=== PATIENT | female | born 2005 | race Caucasian/White ===

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

== ENCOUNTER 2023-09-12 12:29 | Emergency (ER) | payer OTHER, SELFPAY ==
[2023-09-12 12:35] VITALS: BP 113/76; PULSE 81; RESP 17; TEMP 36.6; O2SAT 97; BMI 42.0
--- NOTE | 2023-09-12 12:40 | ED_ITS ---
HPI - General Adult General Chief complaint: Abdominal Pain Stated complaint: Stomach Pain Headache Time Seen by Provider: 09/12/23 13:56 Source: patient Mode of arrival: ambulatory Limitations: no limitations History of Present Illness HPI narrative: 18 year old female with no significant pmhx presents to the ED today with complaint of headache and abdominal discomfort x1 day. Reports epigastric discomfort that began gradually while at work yesterday. Later that night began to have a mild headache. Reports eating dinner and drinking water before going to bed and was able to sleep through the night. Endorses waking up this morning with continued epigastric discomfort, no pain. No radiation. States that everyone she lives with is sick with similar symptoms. Denies fever, chills, nasal congestion, sore throat, ear pain, vision changes, chest pain, SOB, wheezing, N/V, diarrhea, or constipation. Denies previous abdominal surgery. Related Data Allergies Allergy/AdvReac Type Severity Reaction Status Date / Time No Known Allergies Allergy Verified 09/12/23 12:34 Review of Systems 2 Review of Systems: Constitutional: No fever, chills, fatigue, night sweats, weight changes ENT/Mouth: No ear pain, hearing loss, nasal congestion, sinus pain, rhinorrhea, sore throat Eyes: No eye pain, swelling, redness, vision changes, discharge Cardio: No chest pain, palpitations, TALAVERA, orthopnea, peripheral edema Pulm: No SOB, cough, sputum, wheezing, dyspnea, hemoptysis GI: No nausea, vomiting, hematemesis, +abdominal discomfort, No diarrhea, constipation, hematochezia, melena : No irregular bleeding, dysuria, frequency, urgency, hesitancy, hematuria, flank pain, urinary flow changes, urinary incontinence or retention MSK: No back pain, neck pain, joint pain, myalgias Skin: No lesions, rashes Neuro: No weakness, numbness, paresthesias, LOC, dizziness, +headache All other systems reviewed and are negative. [facility] Past Medical History Attestation statement: The following information was validated with the patient. Source: old records reviewed and nursing notes reviewed Social History Social History Alcohol intake: never Smoked in Last 30 Days: No Use of substances other than those prescribed or required for medical reasons: No Advance Directives: No Advance Directives Information Provided: Yes Physical Exam ED Vital Signs: Vital Signs - 24 hr 09/12/23 12:35 09/12/23 13:55 Temperature 98 F 98.2 F Pulse Rate 81 Respiratory Rate 17 Blood Pressure 113/76 Pulse Oximetry 97 BMI result Body Mass Index 42.0 Vital signs are stable, afebrile. Const General: cooperative, comfortable, no acute distress, alert and awake Nutritional Appearance: overweight Orientation/consciousness: patient oriented x3 Limitations: no limitations HENNJ Head: Yes normal to inspection Ears: hearing grossly normal bilaterally General nose exam: Normal external nose present Face and sinus: Yes normal facial exam and Yes sinuses nontender Mouth: Normal oral and palatal mucosa present Throat: Yes posterior oropharynx normal, Yes tonsils normal and Yes uvula midline Eyes General: appearance normal, both eyes and all related structures Conjunctivae: conjunctivae normal Sclerae: sclerae normal Pupils: Equal, round and reactive pupils present EOM: EOMs intact bilaterally Neck Neck: Yes normal visual inspection, Yes no lymphadenopathy and Yes no meningeal signs Resp Effort & Inspection: normal respiratory effort Auscultation: clear to auscultation bilaterally Cardio Rate: regular rate Rhythm: regular rhythm Peripheral pulses: radial pulses present GI Other: Abdomen is soft, nontender, nondistended, normoactive bowel sounds x4, no rebound tenderness or guarding. Negative rovsings. No mcburney point tenderness. Inspection: Yes obesity and Yes striae General: Yes no CVA tenderness Back/Spine/Pelvis Back: no CVA tenderness Skin General skin exam: no rashes or lesions noted Neuro General: patient oriented x3, gait normal, moves all extremities and no meningeal signs Cranial nerves: Yes CN's II-XII intact bilaterally and Yes Equal, round and reactive pupils present Extrem General: Yes normal to inspection, Yes capillary refill normal and Yes no clubbing, cyanosis or edema Course Course Course Narrative: This is an RME: Additional HPI, ROS, PE not included below will be deferred to primary provider. This is a 18 yo female presenting with stomach pain, headache X 1 day. She has had contact with her sister who has similar symptoms. Endorses fever and chills subjectively yesterday at work Plan - viral testing Reevaluation(s) Reevaluation #1: 6215-- CBC without leukocytosis or anemia. Chemistry without acute electrolyte abnormality requiring intervention. Liver enzymes normal. Urine does not demonstrate urinary tract infection or . There is no blood in urine to indicate renal stone. Serology is negative for COVID and influenza. > Informed patient of unremarkable lab, urine and serology results. This is likely a viral infection. As patient's abdomen is soft, nondistended and nontender to palpation I do not feel as though imaging is necessary. I do not suspect an acute appendicitis, cholecystitis or acute abdomen at this time. Strict return precautions discussed. All questions answered at this time. Patient is agreeable with disposition and stable for discharge. Medical Decision Making Medical Decision Making [facility] Narrative: 18 year old female with no significant pmhx presents to the ED today with complaint of headache and abdominal discomfort x1 day. Vital signs stable, afebrile. Patient is nontoxic appearing and in no acute distress, watching videos on her phone. Exam nonfocal. PERRLA. Posterior oropharynx without erythema, edema. No tonsillar exudates. Uvula midline. RRR. Lungs CTA b/l. Abdomen is soft, ND/NT, no rebound tenderness or guarding. There are normoactive bowel sounds x4. Negative Rovsing sign. No McBurney point tenderness. NV intact distally. Clinical concern for viral syndrome, gastroenteritis, gastritis, headache, migraine. Low suspicion for urinary tract infection, renal colic, nephrolithiasis, pyelonephritis, . Low suspicion for acute appendicitis, cholecystitis, pancreatitis, SBO, or acute abdomen. Unlikely ectopic , ovarian cyst rupture, or ovarian torsion. Basic labs, serology, UA, urine obtained in triage. Plan to review results and re-evaluate patient. Differential Diagnosis Differential Diagnoses: The differential diagnosis associated with the presentation includes As above. Admission/Observation Not indicated. Lab Data MDM Lab Attestation statement: I reviewed the patient's lab results. As above. 09/12/23 12:51 09/12/23 12:51 Labs: Lab Results 09/12/23 Range/Units 12:51 WBC 8.5 (4.8-10.8) X10*3/uL RBC 4.77 (4.20-5.50) X10*6/uL Hgb 13.7 (12.0-16.0) g/dl Hct 39.9 (37.0-47.0) % MCV 83.6 (80.0-98.0) fL MCH 28.7 (27.0-33.0) pg MCHC 34.3 (31.0-35.0) g/dl RDW 13.0 (11.0-16.0) % Plt Count 355 (160-400) X10*3/uL MPV 9.8 (9.4-12.3) fL Immature Gran % (Auto) 0.2 (0.0-0.4) % Neut % (Auto) 60.3 (45-73) % Lymph % (Auto) 28.7 (20-40) % [place] % (Auto) 7.6 (2-11) % Eos % (Auto) 2.8 (0-4) % Baso % (Auto) 0.4 (0-2) % Lymph # (Auto) 2.4 (1.2-4.9) X10*3/uL [place] # (Auto) 0.7 (0.1-1.2) X10*3/uL Eos # (Auto) 0.2 (0.0-0.4) X10*3/uL Baso # (Auto) 0.0 (0.0-0.2) X10*3/uL Abs Immat Gran (auto) 0.02 (0.00-0.03) X10*3/uL Absolute Neuts (auto) 5.1 (2.0-8.3) x10*3/uL Absolute Nucleated RBC 0.000 (0.0-0.012) X10*3/uL Nucleated RBC % (auto) 0.0 (0.0-0.2) /100WBC Sodium 139 (135-145) mmol/L Potassium 3.9 (3.3-5.1) mmol/L Chloride 105 (96-108) mmol/L Carbon Dioxide 27 (22-29) mmol/L Anion Gap 11 L (12-20) BUN 4 L (9-16) mg/dL Creatinine 0.65 (0.5-1.4) mg/dL Estim Creat Clear Calc 144.5 Estimated GFR > 60 Random Glucose 93 (60-115) mg/dL Calcium 9.5 (8.4-10.2) mg/dL Total Bilirubin 1.0 (0.0-1.0) mg/dL AST 20 (5-31) U/L ALT 29 (0-31) U/L Alkaline Phosphatase 87 (39-117) U/L Total Protein 7.6 (6.5-8.0) g/dL Albumin 4.3 (3.5-5.0) g/dL Urine Color Yellow Urine Appearance Clear Urine pH 7.0 (5.0-9.0) Ur Specific [place] 1.015 (1.005-1.025) Urine Protein Negative (Neg-Trace) mg/dL Urine Glucose (UA) Negative (Negative) mg/dL Urine Ketones Negative (Negative) mg/dL Urine Blood Negative (Negative) Urine Nitrite Negative (Negative) Ur Leukocyte Esterase Negative (Negative) Urine Test NEGATIVE (NEGATIVE) COVID-19 (ARTUR) Negative (Negative) COVID-19 Clin Com See Note Influenza Type A (AYAZ) Negative (Negative) Influenza Type B (AYAZ) Negative (Negative) Influenza A & B Note See Note External Record Review External record reviewed: Inpatient record, Office record, Outpatient record, Prior outpatient labs, Prior outpatient radiology, Primary care record and Outside ED record Prescription Management I considered prescription management with: Pain Medication Critical Care Time Critical Care Time Critical Care Time: No Discharge Plan Discharge Clinical Impression: Headache, Gastroenteritis Patient Disposition: Home, Self-Care Instructions: Gastroenteritis (ED) Additional Instructions: Your lab workup today was reassuring.? Your urine test was negative for infection and . You tested negative for COVID and influenza. Your symptoms are most consistent with a viral infection. ? The treatment for this is supportive care. Symptoms usually resolve on their own in 48-72 hours.? The recommendation is rest and lots of oral hydration.? Stick to a bland diet like soup and toast while you are not feeling well.? You can also try over the counter Pepto Bismol or Imodium as needed for upset stomach and diarrhea.? Follow up with your primary care provider as needed. If you develop new or worsening symptoms call 911 or come back to the ER for further evaluation. Stand Alone Forms: Work/School Release
[2023-09-12 12:59] LABS: MANUAL DIFF FLAG NO
[2023-09-12 13:01] LABS: Basophils Percent Auto 0.4 % (0-2); Eosinophils Absolute Auto 0.2 X10*3/uL (0.0-0.4); Eosinophils Percent Auto 2.8 % (0-4); Hematocrit 39.9 % (37.0-47.0); Hemoglobin 13.7 g/dl (12.0-16.0); Imm Gran Abs Auto 0.02 X10*3/uL (0.00-0.03); Imm Gran Pct Auto 0.2 % (0.0-0.4); Lymphocytes Absolute Auto 2.4 X10*3/uL (1.2-4.9); Lymphocytes Percent Auto 28.7 % (20-40); Mean Corpuscular HGB Conc 34.3 g/dl (31.0-35.0); Mean Corpuscular Hemoglobin 28.7 pg (27.0-33.0); Mean Corpuscular Volume 83.6 fL (80.0-98.0); Mean Platelet Volume 9.8 fL (9.4-12.3); Monocytes Absolute Auto 0.7 X10*3/uL (0.1-1.2); Monocytes Percent Auto 7.6 % (2-11); Neutrophils Absolute Auto 5.1 x10*3/uL (2.0-8.3); Neutrophils Percent Auto 60.3 % (45-73); Platelet Count 355 X10*3/uL (160-400); Red Blood Count 4.77 X10*6/uL (4.20-5.50); White Blood Count 8.5 X10*3/uL (4.8-10.8)
[2023-09-12 13:03] LABS: Appearance Urine Clear; Color Urine Yellow; Glucose Urine UA Negative (Negative); Leukocyte Esterase Urine Negative (Negative); Nitrite Urine Negative (Negative); Specific Gravity - Urine 1.015 (1.005-1.025); UPreg QC Valid YES; Urine Blood Negative (Negative); Urine Ketones Negative (Negative); Urine Pregnancy NEGATIVE (NEGATIVE); Urine Protein Negative (Neg-Trace)
[2023-09-12 13:19] LABS: Alanine Aminotransferase 29 U/L (0-31); Albumin Level 4.3 g/dL (3.5-5.0); Alkaline Phosphatase 87 U/L (39-117); Anion Gap 11 (12-20); Aspartate Amino Transferase 20 U/L (5-31); Blood Urea Nitrogen 4 mg/dL (9-16); Calcium 9.5 mg/dL (8.4-10.2); Carbon Dioxide 27 mmol/L (22-29); Chloride 105 mmol/L (96-108); Creatinine Clr Calc Pharmacy 144.5; Estimated Glomerular Filt Rate > 60; Glucose Random 93 mg/dL (60-115); Potassium 3.9 mmol/L (3.3-5.1); Sodium 139 mmol/L (135-145); Total Protein 7.6 g/dL (6.5-8.0)
[2023-09-12 13:38] LABS: COVID-19 Test Negative (Negative); IDNOW Serial# 9DB6401D; IDNOW Serial# BCCEAD1C; Influenza A Negative (Negative); Influenza B2 Negative (Negative)
[2023-09-12 13:55] VITALS: TEMP 36.8
--- NOTE | 2023-09-12 13:55 | PC.NURSE ---
Patient reports abdominal and flank pain that started yesterday. States everyone she lives with is also sick. Reports had a headache yesterday but no headache currently. Denies sore throat, chest pain, nausea or vomiting.
[2023-09-12] MEDS: Acetaminophen 325 MG TABLET 975 MG PO (14:53)
--- NOTE | 2023-09-12 14:57 | PC.NURSE ---
Discharge plan reviewed with patient who verbalized understanding
== END 2023-09-12 14:58 | disposition home or self-care (01) ==
PROVIDERS: Physician Assistant; Emergency Provider Emergency Medicine; PCP Pediatrics
DX: R51.9 Headache, unspecified (principal); K52.9 Noninfective gastroenteritis and colitis, unspecified; E66.9 Obesity, unspecified; Z68.41 Body mass index [BMI] 40.0-44.9, adult; Z11.52 Encounter for screening for COVID-19
CPT/HCPCS: 36415; 80053; 81003; 81025; 85025; 87502; 87635; 99283; 99284

== ENCOUNTER 2023-10-24 12:06 | Emergency (ER) | payer OTHER, SELFPAY ==
--- NOTE | ~2023-10-24 | XR_ITS ---
EXAMINATION: XR CHEST CLINICAL INFORMATION: Cough COMPARISON: None available. TECHNIQUE: 2 views of the chest were obtained. FINDINGS: No significant abnormality is noted involving the heart, lungs, mediastinum, bony thorax or soft tissues. XR/XR chest 2V IMPRESSION: Unremarkable chest examination.
[2023-10-24 12:24] VITALS: BP 135/82; PULSE 108; RESP 20; TEMP 37.2; O2SAT 98; BMI 35.9
[2023-10-24 13:04] LABS: COVID-19 Test Negative (Negative); IDNOW Serial# 08D9AD1C; IDNOW Serial# BCCEAD1C; Influenza A Positive (Negative); Influenza B2 Negative (Negative)
--- NOTE | 2023-10-24 15:44 | ED_ITS ---
HPI - URI/Sore Throat General Chief Complaint: Upper Respiratory Symptoms Stated Complaint: Diff Breathing Time Seen by Provider: 10/24/23 15:44 Source: patient Mode of arrival: ambulatory Limitations: no limitations History of Present Illness HPI Narrative: 18 year old female with no significant pmhx presents to the ED today for evaluation of cough x4 days. Cough is not productive of sputum. Endorses chest discomfort on coughing which began this morning. Has been taking tylenol at home. Admits her mom is ill with the flu at home. Denies fever, chills, sore throat, chest pain, palpitations, sob, dyspnea, wheezing, leg swelling or pain. No history of asthma. Related Data Previous Rx's Medication Instructions Recorded benzonatate 100 mg capsule 100 mg PO BID PRN cough #20 caps 10/24/23 Allergies Allergy/AdvReac Type Severity Reaction Status Date / Time No Known Allergies Allergy Verified 10/24/23 12:26 Review of Systems Review of Systems: Constitutional: No fever, chills, fatigue, night sweats, weight changes ENT/Mouth: No ear pain, hearing loss, nasal congestion, sinus pain, rhinorrhea, sore throat Eyes: No eye pain, swelling, redness, vision changes, discharge Cardio: No chest pain, palpitations, TALAVERA, orthopnea, peripheral edema Pulm: No SOB, +cough, No sputum, wheezing, dyspnea, hemoptysis GI: No nausea, vomiting, hematemesis, abdominal pain, diarrhea, constipation, hematochezia, melena : No irregular bleeding, dysuria, frequency, urgency, hesitancy, hematuria, flank pain, urinary flow changes, urinary incontinence or retention MSK: No back pain, neck pain, joint pain, myalgias Skin: No lesions, rashes Neuro: No weakness, numbness, paresthesias, LOC, dizziness, headache All other systems reviewed and are negative. [facility] Past Medical History Attestation statement: The following information was validated with the patient. Source: old records reviewed and nursing notes reviewed Social History Social History Alcohol intake: never Advance Directives: No Advance Directives Information Provided: Yes Physical Exam Vital Signs: Vital Signs: Last Vital Signs Temp 99.0 F 10/24/23 12:24 Pulse 108 H 10/24/23 12:24 Resp 20 10/24/23 12:24 BP 135/82 10/24/23 12:24 Pulse Ox 98 10/24/23 12:24 O2 Del Method Room Air 10/24/23 12:24 BMI result Body Mass Index 35.9 Const: General: cooperative, healthy appearing, comfortable, no acute distress, alert and awake Orientation/consciousness: patient oriented x3 Limitations: no limitations HEENT: Other: + posterior oropharynx without erythema or edema, no tonsilar exudates, no peritonsilar masses, uvula midline, controlling secretions and speaking in complete sentences. Ears: hearing grossly normal bilaterally, external ears normal, TM's normal bilaterally, EAC's normal, mastoids normal and no periauricular adenopathy General nose exam: Normal external nose present and No nasal discharge present Face and sinus: Yes normal facial exam and Yes sinuses nontender Eyes: General: appearance normal, both eyes and all related structures Neck: Neck: Yes normal visual inspection, Yes full ROM and Yes no lymphadenopathy Resp: Effort & Inspection: normal respiratory effort, able to speak in c omplete sentences, Actively coughing, no respiratory distress, no tripod positioning and no use of accessory muscles Auscultation: clear to auscultation bilaterally and no wheezes Cardio: Rate: regular rate Rhythm: regular rhythm Skin: General skin exam: no rashes or lesions noted Neuro: General: patient oriented x3, gait normal and moves all extremities Extrem: General: Yes normal to inspection Course Course Course Narrative: Patient tested positive for influenza A. chest xray is unremarkable. informed patient of work up results. Educated on symptomatic treatment. Will send Kandy Howard to pharmacy for cough. Patient has remained stable throughout ED visit today. Discussed strict return precautions. All questions answered at this time. Patient is agreeable with disposition and stable for discharge. Medical Decision Making Medical Decision Making [facility] Narrative: 18 year old female with no significant pmhx presents to the ED today for evaluation of cough x4 days. afebrile. nontoxic appearing and in nad. b/l EACs and TMs wnl. posterior oropharynx wnl. lungs cta b/l, no wheezes. coughing on exam. concern for viral syndrome vs pneumonia vs bronchitis. unlikely pneumothorax, group captain, retropharyngeal abscess, epiglottitis, ards. plan for serology and cxr. Differential Diagnosis Differential Diagnoses: The differential diagnosis associated with the presentation includes as above. Admission/Observation Not indicated Lab Data MDM Lab Attestation statement: I reviewed the patient's lab results. as above. Labs: Lab Results 10/24/23 Range/Units 12:30 COVID-19 (ARTUR) Negative (Negative) COVID-19 Clin Com See Note Influenza Type A (AYAZ) Positive A (Negative) Influenza Type B (AYAZ) Negative (Negative) Influenza A & B Note See Note Independent Interpretation I performed an independent interpretation of an: Plain X-Ray Interpretation: Chest x-ray without infiltrate or consolidation, agree with radiologist's interpretation. Radiology Impression Discussion of test interpretation with radiology: I have reviewed the radiologist's reading. Radiologist Impression: XR chest 2V IMPRESSION: Unremarkable chest examination. External Record Review External record reviewed: Inpatient record Prescription Management I considered prescription management with: Other (Antitussive) Critical Care Time Critical Care Time Critical Care Time: No Discharge Plan Discharge Clinical Impression: Influenza A Patient Disposition: Home, Self-Care Instructions: Influenza (ED), Flu Shot (Vaccine) for Adults (ED) Additional Instructions: You tested positive for influenza A. Your chest x-ray was normal. The fluid does not require antibiotic treatment. The treatment for this is symptomatic. Tessalon Perles have been sent to your pharmacy for cough. Alter ibuprofen and Tylenol for fevers and body aches. You may also purchase [id number] Chloraseptic spray tp spray at the back of the throat for throat pain. Follow-up with your PCP. If symptoms persist or worsen please return to the emergency department. The case of an emergency call 911. Prescriptions: New benzonatate 100 mg capsule 100 mg PO BID PRN (Reason: cough) Qty: 20 0RF Referrals: Char So MD [Primary Care Provider] - Stand Alone Forms: Work/School Release Interventions: ED Discharge Assessment Last Done: 10/24/23 15:52 Discharge Date/Time: 10/24/23 15:53
== END 2023-10-24 15:53 | disposition home or self-care (01) ==
PROVIDERS: Emergency Provider Emergency Medicine; PCP Pediatrics
DX: J10.1 Influenza due to other identified influenza virus with other respiratory manifestations (principal); R06.02 Shortness of breath; R05.9 Cough, unspecified; Z11.52 Encounter for screening for COVID-19; Z20.822 Contact with and (suspected) exposure to COVID-19
CPT/HCPCS: 71046; 87502; 87635; 99282; 99283

== ENCOUNTER 2025-05-27 09:42 | Outpatient (REF) | payer MEDICAID, SELFPAY ==
--- OUTSIDE RECORDS SUMMARY | 2025-05-27 10:17 | XMS_ITS | Encounter Summary ---
Author Organization [facility] Address [address] [place] [address] Phone Care Team Providers Care Cork Tipper Name Role Phone Char So MD Primary Care Provider [phone] Encounter Details Date Type Department Care Team (Late st Contact Info) Description 06/15/2017 Conversion Encounter [facility] [address] [place] [address] Social History Tobacco Use Types Packs/Day Years Used Date Smoking Tobacco: Never Assessed Comments Unknown Sex and Gender Information Value Date Recorded Sex Assigned at Not on file Legal Sex Female 4:45 PM EDT Gender Identity Female 08/12/2020 3:01 PM EDT Sexual Orientation Straight 08/16/2023 10 :33 AM EDT documented as of this encounter Plan of Treatment Not on file documented as of this encounter Visit Diagnoses Not on filedocumented in this encounter Care Teams Cork Tipper Relationship Specialty Start Date End Date Char So MD [address] [place] [address] PCP - General Pediatrics 05/06/19 08/14/24 documented as of this encounter
--- OUTSIDE RECORDS SUMMARY | 2025-05-27 10:17 | XMS_ITS | Clinical Summary ---
Author Organization [facility] Address [address] [place] [address] Care Team Providers Care Water Trainer Name Role Phone Beka Santiago MD Primary Care Provider [phone] Medical History Medical History Date Comments Chest pain DX:Chest pain SOB (shortness of breath) on exertion DX:SOB (shortness of breath) on exertion PNA (pneumonia) DX:PNA (pneumoni a) PCOS (polycystic ovarian syndrome) DX:PCOS (polycystic ovarian syndrome) Precordial pain DX:Precordial pa in Social History Tobacco Use Types Packs/Day Years Used Date Smoking Tobacco: Never Smokeless Tobacco: Never Alcohol Use Standard Drinks/Week Comments Yes 0 (1 standard drink = 0.6 oz pur e alcohol) Comments Unknown Sex and Gender Information Value Date Recorded Sex Assigned at Not on file Legal Sex Female 2:58 AM EST Gender Identity Not on file Sexual Orientation Not on file Obstetrics History Last Filed Vital Signs Vital Sign Reading Time Taken Comments Blood Pressure 117/65 07/15/2022 9:51 AM EDT Lyi ng L Arm Pulse 77 06/06/2022 12:47 PM EDT Temperature - - Respiratory Rate - - Oxygen Saturation - - Inhaled Oxygen Concentration - - Weight 86.6 kg (191 lb) 07/15/2022 9:51 AM EDT Height 152.4 cm (5') 07/15/2022 9:51 AM EDT Body Mass Index 37.3 07/15/2022 9:51 AM EDT Plan of Treatment Health Maintenance Due Date Last Done Comments Gonorrhea/Chlamydia Screening 2003 HPV Vaccines (1 - 3-dose series) 2018 Meningococcal B Vaccine (1 o f 2 - Standard) 2019 DTaP,Tdap,and Td Vaccines (1 - Tdap) 2022 Hepatitis B Vaccines (1 of 3 - 19+ 3-dose series) 2022 Annual Well Child Visit (3-2 1 years old) 10/02/2022 HIV Screening 10/02/2022 Hepatitis C Screening 10/02/2022 Social Influencers of Health Screening 10/02/2022 COVID-19 Vaccine (1 - 2023-2 5 season) 2024 Cervical Cancer Screening: P ap Smear 2024 Depression Screening 10/30/2024 Influenza Vaccine (#1) 2025 HIB Vaccines Aged Out No longer eligi ble based on patient's age to complete this topic Hepatitis A Vaccines Aged Out No long er eligible based on patient's age to complete this topic IPV Vaccines Aged Out No longer eligi ble based on patient's age to complete this topic MMR Vaccines Aged Out No longer eligi ble based on patient's age to complete this topic Meningococcal ACWY Vaccine Aged Out N o longer eligible based on patient's age to complete this topic Pneumococcal Vaccine: Pediat rics (0 to 5 Years) and At-Risk Patients (6 to 49 Years) Aged Out No longer eligible b ased on patient's age to complete this topic RSV Immunization Patients Un shelly 20 months Aged Out No longer eligible b ased on patient's age to complete this topic Varicella Vaccines Aged Out No longer eligible based on patient's age to complete this topic Care Teams Water Trainer Relationship Specialty Start Date End Date Beka Santiago MD [address] [place] [id number] PCP - General Internal Medicine 06/06/22
--- OUTSIDE RECORDS SUMMARY | 2025-05-27 10:17 | XMS_ITS | Encounter Summary ---
Author Organization [employer] Address [address] [place] [address] [address] [place] [address] Care Team Providers Care Eap Consultant Name Role Phone Unavailable Primary Care Provider Unavailabl e Encounter Details Date Type Department Care Team (Latest Contact Info) Description 05/27/2025 Travel Social History Tobacco Use Types Packs/Day Years Used Date Smoking Tobacco: Never Assessed Comments Unknown Sex and Gender Information Value Date Recorded Sex Assigned at Female 05/27/2025 8:47 AM EDT Legal Sex Female 1:23 PM EDT Gender Identity Female 05/27/2025 8:47 AM EDT Sexual Orientation Straight 05/27/2025 8: 48 AM EDT documented as of this encounter Plan of Treatment Not on file documented as of this encounter Visit Diagnoses Not on filedocumented in this encounter
[2025-05-27 11:16] LABS: MANUAL DIFF FLAG NO
[2025-05-27 11:30] LABS: Hematocrit 38.1 % (37.0-47.0); Hemoglobin 13.2 g/dl (12.0-16.0); Imm Gran Abs Auto 0.01 X10*3/uL (0.00-0.03); Imm Gran Pct Auto 0.1 % (0.0-0.4); Lymphocytes Absolute Auto 1.7 X10*3/uL (1.2-4.9); Mean Corpuscular HGB Conc 34.6 g/dl (31.0-35.0); Mean Corpuscular Hemoglobin 28.8 pg (27.0-33.0); Mean Corpuscular Volume 83.2 fL (80.0-98.0); NRBC Abs Auto 0.000 X10*3/uL (0.0-0.012); NRBC Pct Auto 0.0 /100WBC (0.0-0.2); Platelet Count 365 X10*3/uL (160-400); Red Blood Count 4.58 X10*6/uL (4.20-5.50); White Blood Count 7.5 X10*3/uL (4.8-10.8)
[2025-05-27 11:56] LABS: Alanine Aminotransferase 32 U/L (0-31); Albumin Level 4.7 g/dL (3.5-5.0); Alkaline Phosphatase 75 U/L (39-117); Anion Gap 11 (12-20); Aspartate Amino Transferase 29 U/L (5-31); Blood Urea Nitrogen 6 mg/dL (9-16); Calcium 9.3 mg/dL (8.4-10.2); Carbon Dioxide 28 mmol/L (22-29); Chloride 106 mmol/L (96-108); Estimated Glomerular Filt Rate > 60; Potassium 3.8 mmol/L (3.3-5.1); Sodium 141 mmol/L (135-145); Total Protein 7.4 g/dL (6.5-8.0)
== END 2025-05-27 09:43 | disposition home or self-care (01) ==
LOC: HO.HHCL 09:42
PROVIDERS: PCP Student in an Organized Health Care Education/Training Program; Visit Provider Student in an Organized Health Care Education/Training Program
DX: R21 Rash and other nonspecific skin eruption (principal)
CPT/HCPCS: 36415; 80053; 85025

== ENCOUNTER 2025-07-04 11:10 | Outpatient (REF) | payer MEDICAID, SELFPAY ==
--- OUTSIDE RECORDS SUMMARY | 2025-07-04 12:18 | XMS_ITS | Encounter Summary ---
Author Organization [employer] Address [address] [place] [address] Care Team Providers Care Maintenance Repairer Name Role Phone Ashley Boyle MD Primary Care Pro vider Reason for Referral * Consultation (Routine) - Closed Specialty Diagnoses / Procedures Referred By Tariq cherry Referred To Contact Obstetrics and Gynecology Diagnoses Less than 8 weeks gestation of Ashley Boyle MD [address] [place] [phone] Phone: tel: fax: [address] Phone: tel: fax: Referral ID Status Reason Start Date Expiration Date V isits Requested Visits Authorized [id number] Closed Specialty Services Required 07/03/2025 07/03/2026 30 30 Encounter Details Date Type Department Care Team (Late st Contact Info) Description 07/03/2025 Orders Only [facility] [address] [place] [address] [phone] Ashley Boyle MD [address], [place] [phone] Less than 8 weeks gestation of (Primary Dx) Social History Tobacco Use Types Packs/Day Years Used Date Smoking Tobacco: Never Assessed Comments Unknown Sex and Gender Information Value Date Recorded Sex Assigned at Female 05/27/2025 8:47 AM EDT Legal Sex Female 1:23 PM EDT Gender Identity Female 05/27/2025 8:47 AM EDT Sexual Orientation Straight 05/27/2025 8: 48 AM EDT documented as of this encounter Plan of Treatment Scheduled Orders Name Type Priority Associated Diagnoses Orde r Schedule hCG, Total, Quantitative Lab Routine Less than 8 weeks gestation of Expected: 07/03/2025 (Approximate), Expires: 07/03/2026 Scheduled Referrals Name Type Priority Associated Diagnoses Order Schedule Referral to Obstetrics / Gynecology Outpatient Referral Routine Less than 8 weeks gestation of Expected: 07/03/2025 (Approximate), Expires: 07/03/2026 documented as of this encounter Visit Diagnoses Diagnosis Less than 8 weeks gestation of - Primary documented in this encounter Care Teams Maintenance Repairer Relationship Specialty Start Date End Date Ashley Boyle MD [address] [place] [phone] PCP - General Internal Medicine 05/27/25 documented as of this encounter
--- OUTSIDE RECORDS SUMMARY | 2025-07-04 12:18 | XMS_ITS | Encounter Summary ---
Author Organization [facility] Address [address] [place] [address] Phone Care Team Providers Care Fraud Manager Name Role Phone Char So MD Primary Care Provider [phone] Encounter Details Date Type Department Care Team (Late st Contact Info) Description 06/15/2017 Conversion Encounter [facility] [address] [place] [address] Social History Tobacco Use Types Packs/Day Years [...] on filedocumented in this encounter Care Teams Fraud Manager Relationship Specialty Start Date End Date Char So MD [address] [place] [address] PCP - General Pediatrics 05/06/19 08/14/24 documented as of this encounter
--- OUTSIDE RECORDS SUMMARY | 2025-07-04 12:18 | XMS_ITS | Clinical Summary ---
Author Organization [facility] Address [address] [place] [phone] Phone Care Team Providers Care Window Shade Cloth Sewer Name Role Phone Unavailable Primary Care Provider Unavailabl e Allergies No known active allergies Medications BP Gel 5 % gelIndications: Acne vulgaris APPLY TOPICALLY DAILY. APPLY A THIN LAYER EVERY MORNING 60 g 0 Active Additional Information Patient not taking.Reported on 08/16/2023 Active Problems Problem Noted Date Diagnosed Date Low vitamin D level 08/17/2023 Overview (11/29/2023): 08/17/2023 (age 17yr): 12.3. Recommend treat vit D 50 mcg daily x 90 days and retest. [employer] messages sent. 11/13/2023 (age 18yr): Rx refill refused. [employer] message to get labd checked 11/20/2023 (age 18yr): Message to clinical staff to have labs checked 11/29/2023 (age 18yr): Vit D level 11.9. Re treat and retest. Assessment & Plan (08/17/2023 6:03 AM EDT): 08/17/2023 (age 17yr): 12.3. Recommend treat vit D 50 mcg daily x 90 days and retest. [employer] messages sent. Right bundle branch block 04/08/2022 Overview (04/08/2022): 04/08/2022: [facility] visit for worsening chest pain. WBC elevated at 19.5, EKG with RBBB, Bili 1.6 but CMP otherwise normal, CxR normal, cardiac u/s normal. Recommend cardiology Follow up given abnormal EKG. Message to triage to call and ask if cardiology referral is needed. Elevated bilirubin 04/08/2022 Overview (08/16/2023): 04/08/2022: [facility] visit for worsening chest pain. WBC elevated at 19.5, EKG with RBBB, Bili 1.6 (not fractionated) but CMP otherwise normal, CxR normal, cardiac u/s normal. Recommend cardiology Follow up given abnormal EKG. - consider repeat bili with next labs Assessment & Plan (08/16/2023 10:31 AM EDT): 08/16/2023 (age 17yr): 04/08/2022: [facility] visit for worsening chest pain. WBC elevated at 19.5, EKG with RBBB, Bili 1.6 (not fractionated) but CMP otherwise normal, CxR normal, cardiac u/s normal. Recommend cardiology Follow up given abnormal EKG. - repeat bili today History of COVID-19 12/06/2021 Overview (12/06/2021): 12/06/2021 (age 16yr): 11/15/2021 PCOS (polycystic ovarian syndrome) 09/21/2020 Overview (08/16/2023): 08/16/2023 (age 17yr): [facility], would like to restart care for PCOS. - refer to DIGITAL MARKETING PROGRAM MANAGER for ongoing care. - Last Specialist Visit: 01/12/2022: endo, Rx OCP Apri, follow up 6 months (06/2022). May add spironolactone for hirsutism if no improvement. History: 08/23/2020 Menorrhegia/regular cycle at 13 year well visit, treated with OCPs/ Initially reported self d/c after 1 month. .07/03/2020: Restarting OCPs 09/21/2020 (age 15 yr 0 mo): Reports having taken OCPs sporadically until 05/2020, then no menses x 3 months. Holding on OCPS for now. Discussed condom use. 09/21/2020 (age 15 yr 0 mo): Currently having amenorrhea since 05/2020, possibily related to taking OCPs intermittently prior to May. Will check labs and consider provera challenge vs wait for menses after labs completed. 10/02/2020 (age 15 yr 1 mo): Also elevated DHEAS. Likely PCOS with amenorrhea and obesity. Referred to endo for further evaluation, education, and treatment. 11/26/2020:Visit with endo. Likely PCOS, need further labs. Will consider ACTH stim test. Discussed provera challenge, treatment with OCPs, spironolactone. F/U 02/202112/30/2020: Phone call [facility] pt and endo: Labs consistent with PCOS. She did not take Provera. Advised to please picking table worker and to use (LMP May 2020). She is unsure about starting OCPs. She will call if decides to start. Fu in 4-6 months (04/2021 to 06/2021). 08/03/2021 (age 15yr 11mo): followed by liz, unsure if she wants to take provera and OCPS. Was due for follow up 06/2021. . 11/25/2021: Evaluation for continued irregular menses. Menorrhagia labs normal. 01/12/2022: Saw liz, Rx OCP Apri, follow up 6 months (06/2022). May add spironolactone for hirsutism if no improvement. Assessment & Plan (08/16/2023 10:40 AM EDT): 08/16/2023 (age 17yr): Lost to follow up at [facility] l[facility], would like to restart care for PCOS. - refer to DIGITAL MARKETING PROGRAM MANAGER for ongoing care. Assessment & Plan (12/06/2021 1:29 PM EST): 12/06/2021 (age 16yr): Was followed by liz, last visit was 11/26/2021, was Rx'd OCPs but she never took them. Today she is here to review BC options and agreed to try OCPS again. We reviewed risks and benefits of all options including OCP, nuva ring, dep and nexplanon. Was due for follow up wt liz 06/2021. She will follow up with liz. Pt will call them today Assessment & Plan (08/03/2021 12:40 PM EDT): 08/03/2021 (age 15yr 11mo): followed by liz, unsure if she wants to take provera and OCPS. Was due for follow up 06/2021. Still has amenorrhea, needs to follow up with liz.Pt will call. Working on healthy diet, exercise. Assessment & Plan (09/21/2020 10:16 AM EST): 09/21/2020 (age 15 yr 0 mo): Currently having amenorrhea since 05/2020, possibily related to taking OCPs intermittently prior to May. Will check labs and consider provera challenge vs wait for menses after labs completed. Not likely to have SA, discussed condom use if SA. Major depressive disorder with current active ep isode 07/24/2020 Overview (08/16/2023): 08/03/2021 (age 15yr 11mo): Was seeing in [facility]) winter 2020, last visit was 12/2020. PHQ 9 7, much improved since last year. Mitra feels good now, declines further services. 08/16/2023 (age 17yr): Feels down sometimes, mostly in the middle. PHQ4 positive, declines services. Coping well. Detailed History and Chronology of care: 07/03/2020 (age 14 yr 10 mo): has been in counseling in the recent past. Assessment & Plan (08/16/2023 2:13 PM EDT): 08/16/2023 (age 17yr): Feels down sometimes, mostly in the middle. PHQ4 positive, declines services. Coping well. Assessment & Plan (08/03/2021 12:40 PM EDT): 08/03/2021 (age 15yr 11mo): Was seeing in [facility]) winter 2020, last visit was 12/2020. PHQ 9 7, much improved since last year. Alanys feels good now, declines further services. Precordial pain 07/03/2020 Overview (04/08/2022): 08/11/2021 (age 15yr 11mo): Ongoing worsening anterior chest wall pain x 3+ years. + tenderness of anterior chest wall. Cause unclear. Will consider sports medicine referral. May need further work up, consider chest xray or rib series. 12/06/2021 (age 16yr): Mitra was recommended to have PT by ortho, she plans to re engage with it. 04/08/2022: [facility] visit for worsening chest pain. WBC elevated at 19.5, EKG with RBBB, Bili 1.6 but CMP otherwise normal, CxR normal, cardiac u/s normal. Recommend cardiology Follow up given abnormal EKG. Message to triage to call and ask if cardiology referral is needed. Detailed History and Chronology of care: 07/03/2020 (age 14 yr 10 mo): intermittent chest pain, anterior, lasts 1 hour, 1-2 time per month. Last epiode > month ago. Ongoing 2-3 years. No other symtpoms. Pt unable to give history other than that. Assessment & Plan (12/06/2021 1:27 PM EST): 12/06/2021 (age 16yr): Mitra was recommended to have PT by ortho, she plans to re engage with it. Assessment & Plan (08/11/2021 1:18 PM EDT): 08/11/2021 (age 15yr 11mo): Ongoing worsening anterior chest wall pain x 3+ years. + tenderness of anterior chest wall. Cause unclear. Will consider sports medicine referral. May need further work up, consider chest xray or rib series. Assessment & Plan (08/03/2021 12:41 PM EDT): 08/03/2021 (age 15yr 11mo): still having chest pains, needs OV to evaluate. Assessment & Plan (07/03/2020 3:20 PM EDT): 07/03/2020 (age 14 yr 10 mo): broad DDX though likely benign. Pt to keep track of pain and note details. Follow up when she can give a more detailed history if pain persists. Consider GERD, musculoskeletal, panic. Hypertriglyceridemia 06/30/2019 Overview (08/16/2023): 04/27/2017.369 (Mild hypertriglyceridemia - 150 to 499 mg/dL) 08/16/2023 (age 17yr): Recheck labs today Assessment & Plan (08/16/2023 12:21 PM EDT): 08/16/2023 (age 17yr): Recheck labs today Assessment & Plan (07/02/2019 1:58 PM EDT): Excellent weight loss since last visit - BMI 330 down to 30. Keep up the good work! 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 Working at [employer]. Detailed History and Chronology of care: 08/03/2021 (age 15yr 11mo): Has IEP, has small classes for math and [place],ESL. Assessment & Plan (08/16/2023 12:20 PM EDT): 08/16/2023 (age 17yr): Graduated from high school. Working at [employer]. Assessment & Plan (08/03/2021 12:39 PM EDT): 08/03/2021 (age 15yr 11mo): Has IEP, has small classes for math and [place],ESL. Assessment & Plan (07/03/2020 4:00 PM EDT): 07/03/2020 (age 14 yr 10 mo): virtual school this year due to the covid 19 pandemic , she's worried it may be difficult. Mitra is studying graphics at [employer] this fall. Assessment & Plan (07/02/2019 2:09 PM EDT): No changes to plan today Class 2 obesity due to exces s calories without serious comorbidity with body mass index (BMI) of 39.0 to 39.9 in adult 06/08/2012 Overview (08/16/2023): 08/16/2023 (age 17yr): check labs today. Discussed diet/exercise. - Plans to start going to the gym. Not sure what she is going to do there. Will get a consult. - Nutrition consult Assessment & Plan (08/16/2023 10:43 AM EDT): 08/16/2023 (age 17yr): check labs today. Discussed diet/exercise. - Plans to start going to the gym. Not sure what she is going to do there. Will get a consult. - Nutrition consult Assessment & Plan (07/02/2019 2:09 PM EDT): BMI down from 33 To 30. Keep up the good work!m Cut down on portion sizes and started going to the gym. Resolved Problems Problem Noted Date Diagnosed Date Resolved Date Menorrhagia with regular cycle 08/23/2019 12/05/2020 Overview (12/05/2020): 12/05/2020 (age 15 yr 3 mo): Now with seconary amenorrhea, followed by endo, likely PCOS. Work up currently in progress. History: 08/23/2020 Diagnosed at 13 year well visit, treated with OCPs briefly but pt self d/c'd after 1 month, no longer needed them. Restart if desired. .07/03/2020: Restarting OCPs 09/21/2020 (age 15 yr 0 mo): Reports having taken OCPs sporadically until 05/2020, then no menses x 3 months. Holding on OCPS for now. Assessment & Plan (07/03/2020 3:12 PM EDT): 07/03/2020 (age 14 yr 10 mo): would like to restart OCPs for menorrhagia. Assessment & Plan (08/23/2019 11:19 AM EDT): Diagnosed at 13 year well visit, treated with OCPs briefly but pt self d/c'd after 1 month, no longer needed them. Restart if desired. Acne 06/30/2019 08/03/2021 Overview (08/03/2021): 08/03/2021 (age 15yr 11mo): Has been On tretinoin 0.25% PM and BP gel 5% AM in the past, no longer needs it. Assessment & Plan (08/03/2021 12:40 PM EDT): 08/03/2021 (age 15yr 11mo): Has been On tretinoin 0.25% PM and BP gel 5% AM in the past, no longer needs it. Assessment & Plan (07/03/2020 3:11 PM EDT): 07/03/2020 (age 14 yr 10 mo): tretinoin 0.25% and BP gell 5% worked well but she stopped using it. Wants refill. Assessment & Plan (07/02/2019 2:11 PM EDT): Doing well, skin is clear. Sometimes forgets to use it. Poor sleep 06/30/2019 08/03/2021 Overview (08/03/2021): 08/03/2021 (age 15yr 11mo): reports no concerns today. Assessment & Plan (08/03/2021 10:43 AM EDT): 08/03/2021 (age 15yr 11mo): reports no concerns today. Immunizations Immunization Administration Dates Next Due COVID-19 Pfizer, monovalent, 12+ years 1,05/19/2021 DTaP 09/03/2007, 5,06/17/2004,01/23,2003 HPV Vaccine 9 Valent 03/31/2017,06/07/2016,03/22 Hep A, ped/adol 03/22/2016,07/11/2014 Hep B, ped/adol 06/17/2004,01/24/2004,2003 Hib (HbOC) 02/21/2005, 4,01/24/2004,11/25 IPV 09/03/2007, 4,01/24/2004,11/25 Influenza Split 10/13/2010,09/09/2010,08/28/2008 Influenza, injectable, MDCK, preservative free, quadrivalent 07/22/2023 Influenza, injectable, quadr ivalent, preservative free 08/03/2021,07/03/2020,07/02/2019,07/11 Influenza, intranasal, quadrivalent 09/10/2013 MMR 09/03/2007,02/21/2005 Meningococcal B Trumenba 08/16/2023,08/03/2021 Meningococcal Conj (Menactra) MCV4P 07/03/2020,0 03/22/2016 Pneumococcal Conjugate 04/09/2005,06/17/2004,10/2003 Tdap 03/22/2016 Varicella 06/06/2006,04/09/2005 Family History Medical History Relation Name Comments Asthma Sister 1 Ling ADD / ADHD Sister 2 Calebs Relation Name Status Comments Father Kadeem Alive Father: Diabete s mellitus Mother Paris Santana Alive Mother: Alive and well Other Family history of *Dental caries, Family history of Migraines, Family history of *Heart Disease, No family history of Strabismus, No family history of *CVA/Stroke, Family history of Hyperlipidemia, Family history of Obesity, No family history of *Sudden /DC under 55, Family history of Cancer, pancreas, No family history of *Thrombophilia, No family history of Seizure disorder Sister 1 Coraljoshua Alive Sister: Asthma, Asthma Sister 2 Danielys Alive Sister: Asthma, Asthma Social History Tobacco Use Types Packs/Day Years Used Date Smoking Tobacco: Never Smokeless Tobacco: Never Alcohol Use Standard Drinks/Week Comments No 0 (1 standard drink = 0.6 oz pur e alcohol) Hunger/Food Answer Date Recorded In the last 12 months, did y ou or your family ever eat less than you felt you should because there wasn't enough money for food? No 08/16/2023 Stable Housing Answer Date Recorded Are you worried that in the next 2 months you may not have stable housing? No 08/16/2023 Transportation Concerns Answer Date Rec orded In the last 12 months, have you or your family ever had to go without healthcare because you didn't have a way to get there? No 08/16/2023 Hazards in Home Answer Date Recorded Think about the place you li ve. Do you have problems with any of the following? Pests (mice or roaches), mold, no/not working smoke detectors, water leaks, no window guards. No 2022 Financing Utilities Answer Date Recorde d In the last 12 months, has t he electric, gas, oil, or water company threatened to shut off your services in your home? No 08/16/2023 Safety at Home Answer Date Recorded Are you or your family worried about feeling saf e in your home? No 08/16/2023 Outside Support Answer Date Recorded Do you feel that you need mo re support from other people or programs to help you care for yourself or your family? No 08/16/2023 Understanding Health Concerns Answer Da te Recorded Do you need help understandi ng your or your child's healthcare needs (diagnosis, medications, plan, etc.)? No 08/16/2023 Financing Health Concerns Answer Date R ecorded In the last 12 months, was t here a time when your child needed to see a doctor or get medications or supplies but could not because of cost? No 08/16/2023 Missing School or Work Answer Date Estevan rded Did you or your child miss s chool or work because of a health problem that could have been avoided? No 08/16/2023 Comments No Sex and Gender Information Value Date Recorded Sex Assigned at Not on file Legal Sex Female 4:45 PM EDT Gender Identity Female 08/12/2020 3:01 PM EDT Sexual Orientation Straight 08/16/2023 10 :33 AM EDT Last Filed Vital Signs Vital Sign Reading Time Taken Comments Blood Pressure 111/65 08/16/2023 10:10 AM EDT Pulse 70 08/16/2023 10:10 AM EDT Temperature 35.4 C (95.8 F) 12/06/2021 9:48 AM EST Respiratory Rate - - Oxygen Saturation - - Inhaled Oxygen Concentration - - Weight 90.7 kg (200 lb) 08/16/2023 10:10 AM EDT Height 153.2 cm (5' 0.32 ) 08/16/2023 10:10 AM E DT Body Mass Index 38.65 08/16/2023 10:10 AM EDT Plan of Treatment Health Maintenance Due Date Last Done Comments Influenza Vaccines (#1) 2025 07/22/20 23, 08/03/2021, 07/03/2020, Additional history exists COVID-19 Vaccine (4 - 2024-2 6 season) 2025 01/11/2022, 06/14/2021, 05/19/2021 DTaP,Tdap,and Td Vaccines (7 - Td or Tdap) 03/22/2026 03/22/2016, 09/03/2007, 02/21/2005, Additional history exists Hepatitis B Vaccines Completed 06/17/2004, 01/24/2004, 2003 HIB Vaccines Completed 02/21/2005, 05/30, 01/24/2004, Additional history exists Pneumococcal Vaccine Completed 04/09/2005, 06/17/2004, 2003 Varicella Vaccines Completed 06/06/2006, 04/09/2005 IPV Vaccines Completed 09/03/2007, 05/30, 01/24/2004, Additional history exists MMR Vaccines Completed 09/03/2007, 02/21/2005 Hepatitis A Vaccines Completed 03/22/2016, 07/11/20 14 HPV Vaccines Completed 03/31/2017, 06/2016, 03/22/2016 Meningococcal Vaccine Completed 07/03/2020, 016 Men B Vaccine Completed 08/16/2023, 08/03/2021 Procedures * Due to [place] [employer] law, this organization might not be sharing sensitive test results. Procedure Name Priority Date/Time Associated Diagnosis Comments CHLAMYDIA AND GONORRHEA, AMPLIFIED Routine 08/16/2023 11:06 AM EDT Encounter for screening examination for chlamydial infection from Last 3 Months or Most Recently Relevant to Health Maintenance Results * Due to [place] [employer] law, this organization might not be sharing sensitive test results. * Chlamydia and Gonorrhoea, Amplified (Urine) (08/16/2023 11:06 AM EDT) Chlamydia Trachomatis, DNA Probe NEGATIVE (NEG) [facility] Comment: No Chlamydia Trachomatis RNA detected in this patient's sample (REFERENCE RANGE/NORMAL VALUE: NOT DETECTED) Note: This test uses grip wrapper- mediated amplification method to detect rRNA from C. Trachomatis URINE GC AMP PROBE NEGATIVE (NEG) [facility] Comment: No Neisseria Gonorrhoeae RNA detected in this patient's sample (REFERENCE RANGE/NORMAL VALUE: NOT DETECTED) NOTE: This test uses grip wrapper-mediated amplification method to detect rRNA from N.Gonorrhoeae. A negative result does not preclude infection. In the case of a negative urine result, testing of an endocervical(female) or urethral (male) specimen is recommended if there is high clinical suspicion of infection. Due to very high sensitivity of Nucleic Acid Amplification Test, false positive results may occur. Therefore, specimen handling is extremely important. In patients in whom the disease is unlikely, additional sample for testing should be considered after an initial positive result. The performance characteristics of this test have not been evaluated in children. The Aptima Combo2 assay is not intended for the evaluation of suspected sexual abuse or for other medico-legal indications. The ordering provider should assess if the patient had consensual sex without risk of sexual abuse. Consult the [facility] if needed. Contact phone number . Therapeutic failure or success cannot be determined with the Aptima Combo2 assay since nucleic acid may persist following appropriate antimicrobial therapy. The Centers for Disease Control and Prevention (CDC) recommends confirmatory retesting using culture or a different nucleic acid amplification test when positive results occur, if indicated. Testing performed or reported by [facility], a Service of [facility], [facility] [place] [address] Shayne Guzman MD, Plier Worker [facility]# [id number] Urine (Urine, Random (not clean void)) 08/16/2023 11:06 AM EDT 08/16/2023 6:30 PM EDT Char So MD LAB MICROBIOLOGY - GENERAL OR DERABLES Final Result [facility] from Last 3 Months or Most Recently Relevant to Health Maintenance Insurance [facility] NON PCC [facility]
--- OUTSIDE RECORDS SUMMARY | 2025-07-04 12:18 | XMS_ITS | Encounter Summary ---
Author Organization [employer] Address [address] [place] [address] 7 [place] [address] Care Team Providers Care Fruit Harvester Machine Operator Name Role Phone Ashley Boyle MD Primary Care Pro vider Reason for Visit * Reason Onset Date Comments Referral 07/03/2025 Encounter Details Date Type Department Care Team ([facility] st Contact Info) Description 07/03/2025 Telephone [facility] [address] [place], [place] [phone] Ashley Boyle MD [address] [place], [place] [phone] Referral Social History Tobacco Use Types Packs/Day Years Used Date Smoking Tobacco: Never Assessed Comments Unknown Sex and Gender Information Value Date Recorded Sex Assigned at Female 05/27/2025 8:47 AM EDT Legal Sex Female 1:23 PM EDT Gender Identity Female 05/27/2025 8:47 AM EDT Sexual Orientation Straight 05/27/2025 8: 48 AM EDT documented as of this encounter Miscellaneous Notes * Telephone Encounter - Krystin Khoury RN - 07/04/2025 10:42 AM EDT Telephone call placed to pt. Informed referral placed. Advised serum HCG when she can. Pt states will come get it done today. Informed prenatals sent. Pt states at [facility] right now picking them up. Pt denies any daily medications. Advised to avoid alcohol, drugs, tobacco going forward. Pt verbalized un derstanding and denied having any further questions or concerns at this time. Please advise pt to do HCG tests in blood ordered today,sometimes for referrals [facility] office request test result Also please advise pt to start taking Prenatals sent to her pharmacy and to avoid alcohol ,tobacco ,drugs . I see only med is Bandryl ok for sporadic use but to avoid daily use ,to let us know is taking any other meds. I did referral today to [facility] at [facility] Thanks * Telephone Encounter - Krystin Khoury RN - 07/03/2025 2:49 PM EDT Telephone call returned to pt regarding below message. Pt reports several positive urine home tests which she is happy about. She plans to continue the . Would like a referral to [facility] OBGYN. Would also like vitamins to take until she is able to establish care with OBGYN. * Telephone Encounter - Brandon Fournier - 07/03/2025 9:37 AM EDT Tc from pt stating pt took various test at home, which all resulted positive. Pt planningto continue with , requesting OBGYN referral documented in this encounter Plan of Treatment Not on file documented as of this encounter Visit Diagnoses Not on filedocumented in this encounter Care Teams Fruit Harvester Machine Operator Relationship Specialty Start Date End Date Ashley Boyle MD [address] [place] [phone] PCP - General Internal Medicine 05/27/25 documented as of this encounter
--- OUTSIDE RECORDS SUMMARY | 2025-07-04 12:19 | XMS_ITS | Encounter Summary ---
Author Organization [facility] Address [address] [place], [place] [phone] Phone Care Team Providers Care Bag Loader Machine Operator Name Role Phone Char So MD Primary Care Provider [phone] Reason for Visit * Reason Comments Med Refill Encounter Details Date Type Department Care Team (Late st Contact Info) Description 01/11/2019 Refill [facility] [place] [address] [place] [address] Pina Holder MD [address] [place] [address] Vitamin D deficiency Social History Tobacco Use Types Packs/Day Years Used Date Smoking Tobacco: Never Smokeless Tobacco: Never Alcohol Use Standard Drinks/Week Comments No 0 (1 standard drink = 0.6 oz pur e alcohol) Comments No Sex and Gender Information Value Date Recorded Sex Assigned at Not on file Legal Sex Female 4:45 PM EDT Gender Identity Female 08/12/2020 3:01 PM EDT Sexual Orientation Straight 08/16/2023 10 :33 AM EDT documented as of this encounter Miscellaneous Notes * Telephone Encounter - Ivy Stafford MA - 01/13/2019 10:44 AM EDT duplicate documented in this encounter Plan of Treatment Not on file documented as of this encounter Visit Diagnoses Diagnosis Vitamin D deficiency documented in this encounter Care Teams Bag Loader Machine Operator Relationship Specialty Start Date End Date Char So MD [address] [place] [address] PCP - General Pediatrics 05/06/19 08/14/24 documented as of this encounter
--- OUTSIDE RECORDS SUMMARY | 2025-07-04 12:19 | XMS_ITS | Clinical Summary ---
Author Organization [employer] Address [address] [facility] [address] [place] [address] Care Team Providers Care Molder Punch Name Role Phone Ashley Boyle MD Primary Care Pro vider Allergies No known active allergies Medications diphenhydrAMINE (BENADryl) 25 MG tabletIndicatio ns:Skin rash Take 1 tablet (25 mg) by mouth every 8 (eight) hours if needed for itching. 30 tablet 5 Active Vit-Fe Fumarate-FA ( Plus) 27-1 MG tabletIndicatio ns:Less than 8 weeks gestation of One tablet by mouth daily 30 tablet 11 5 Active triamcinolone (Kenalog) 0.1 % creamIndication s:Skin rash Apply topically 2 times daily for 14 days. 15 g 5 06/10/20 25 Active Problems Problem Noted Date Diagnosed Date Skin rash 05/27/2025 Assessment & Plan (05/27/2025 9:51 PM EDT): Possible Atopic dermatitis ? -triamcinolone w cerave mixed for 2 weeks BID, banadryl -CBC,chem -RTC if not improving in which case will need to consider sound tester evaluation -advised pt to hold on using current new soap -not sure if is the cause but to eval while stop use,if not improving to consider if can be associate w dog -requested today to be on new pt list -when start care w new PCP will need eval for PCO -likely w noted obesity,hirsutism,does mentions irregular periods Encounters Date Type Department Care Team Description 07/03/2025 Orders Only [facility] [address] [place] [phone] Ashley Boyle MD Less than 8 weeks gestation of (Primary Dx) 07/03/2025 Telephone [facility] [address] [place] [phone] Aslhey Boyle MD Referral 05/27/2025 9:00 AM EDT Office Visit [facility] [address] [place] [phone] Ashley Boyle MD Skin rash (Primary Dx) 05/27/2025 Results Follow-Up [facility] [address] [place] [phone] Ashley Boyle MD Comprehensive Metabolic Panel, CBC auto differential 05/27/2025 Travel from Last 3 Months Social History Tobacco Use Types Packs/Day Years Used Date Smoking Tobacco: Never Assessed Comments Unknown Sex and Gender Information Value Date Recorded Sex Assigned at Female 05/27/2025 8:47 AM EDT Legal Sex Female 1:23 PM EDT Gender Identity Female 05/27/2025 8:47 AM EDT Sexual Orientation Straight 05/27/2025 8: 48 AM EDT Last Filed Vital Signs Vital Sign Reading Time Taken Comments Blood Pressure 122/66 05/27/2025 9:01 AM EDT Pulse 66 05/27/2025 9:01 AM EDT Temperature 36.3 C (97.3 F) 05/27/2025 9:01 AM EDT Respiratory Rate 20 05/27/2025 9:01 AM EDT Oxygen Saturation 99% 05/27/2025 9:01 AM EDT Inhaled Oxygen Concentration - - Weight 88.5 kg (195 lb) 05/27/2025 9:01 AM EDT Height 152.4 cm (5') 05/27/2025 9:01 AM EDT Body Mass Index 38.08 05/27/2025 9:01 AM EDT Plan of Treatment Health Maintenance Due Date Last Done Comments Depression Screening 2003 HIV Screening 2003 Lipid Panel 2003 SDOH Screening 2003 Disability Screening 2003 Alcohol/Substance Use Screening 2015 Tobacco Screening 2015 Family Planning (PISQ) 2018 Hepatitis C Screening 2021 Chlamydia and Gonorrhea Screening 08/16/2024 08/16/2023 Pap Smear 2024 COVID-19 Vaccine (3 - season) 2025 06/14/2021, 05/19/2021 Influenza Vaccine (#1) 2025 , 08/03/2021, 07/03/2020, Additional history exists DTaP/Tdap/Td Vaccines (7 - Td or Tdap) 03/22/2026 03/22/2016, 09/03/2007, 02/21/2005, Additional history exists Zoster Vaccines (1 of 2) 2053 RSV Patients and Patients Aged 60 years or older (1 - 1-dose 75+ series) 2078 Hepatitis B Vaccines Completed 06/17/2004, 01/24/2004, 2003 HIB Vaccines Completed 02/21/2005, 05/30, 01/24/2004, Additional history exists Pneumococcal Vaccine: Pediatrics (0 to 5 Years) and At-Risk Patients (6 to 49) Years Aged Out 04/09/2005, 06/17/2004, 2003 No longer eligible based on patient's age to complete this topic IPV Vaccines Completed 09/03/2007, 05/30, 01/24/2004, Additional history exists Hepatitis A Vaccines Completed 03/22/2016, 07/11/20 14 HPV Vaccines Completed 03/31/2017, 06/2016, 03/22/2016 Meningococcal Vaccine Completed 07/03/2020, 016 Meningococcal B Vaccine Completed 08/16/2023, 08/03 RSV under 20 months Aged Out No longe r eligible based on patient's age to complete this topic Rotavirus Vaccines Aged Out No longer eligible based on patient's age to complete this topic Procedures Procedure Name Priority Date/Time Associated Diagnosis Comments CBC WITH AUTO DIFFERENTIAL Routine 05/27/2025 9:52 AM EDT Skin rash COMPREHENSIVE METABOLIC PANEL Routine 05/27/2025 9:52 AM EDT Skin rash from Last 3 Months Results * (ABNORMAL) CBC auto differential (05/27/2025 9:52 AM EDT) White Blood Count 7.5 4.8 - 10.8 X10*3/uL [facility] Red Blood Count 4.58 4.20 - 5.50 X10*6/uL [facility] Hemoglobin 13.2 12.0 - 16.0 g/dl [facility] Hematocrit 38.1 37.0 - 47.0 % [facility] Mean Corpuscular Volume 83.2 80.0 - 98.0 fL [facility] Mean Corpuscular Hemoglobin 28.8 27.0 - 33.0 pg [facility] Mean Corpuscular HGB Conc 34.6 31.0 - 35.0 g/dl [facility] Red Cell Distribution Width 12.6 11.0 - 16.0 % [facility] Platelet Count 365 160 - 400 X10*3/uL [facility] Mean Platelet Volume 10.2 9.4 - 12.3 fL [facility] Neutrophils Percent Auto 63.8 45 - 73 % [facility] Imm Gran Pct Auto 0.1 0.0 - 0.4 % [facility] Lymphocytes Percent Auto 23.0 20 - 40 % [facility] Monocytes Percent Auto 8.4 2 - 11 % [facility] Eosinophils Percent Auto 4.4(H) 0 - 4 % [facility] Basophils Percent Auto 0.3 0 - 2 % [facility] NRBC Pct Auto 0.0 0.0 - 0.2 /100WBC [facility] Neutrophils Absolute Auto 4.8 2.0 - 8.3 x10*3/uL [facility] Imm Gran Abs Auto 0.01 0.00 - 0.03 X10*3/uL [facility] Lymphocytes Absolute Auto 1.7 1.2 - 4.9 X10*3/uL [facility] Monocytes Absolute Auto 0.6 0.1 - 1.2 X10*3/uL [facility] Eosinophils Absolute Auto 0.3 0.0 - 0.4 X10*3/uL [facility] Basophils Absolute Auto 0.0 0.0 - 0.2 X10*3/uL [facility] NRBC Abs Auto 0.000 0.0 - 0.012 X10*3/uL [facility] Blood Venous blood specimen / Unknown 05/27/2025 9:52 AM EDT 05/27/2025 11:08 AM EDT Ashley Medellin MD LAB BLOOD ORDERAB LES Final Result [facility] [address] [place] [address] [phone] * (ABNORMAL) Comprehensive Metabolic Panel (05/27/2025 9:52 AM EDT) Sodium 141 135 - 145 mmol/L [facility] Potassium 3.8 3.3 - 5.1 mmol/L [facility] Chloride 106 96 - 108 mmol/L [facility] Carbon Dioxide 28 22 - 29 mmol/L [facility] Anion Gap 11(L) 12 - 20 [facility] Urea Nitrogen (BUN) 6(L) 9 - 16 mg/dL [facility] Creatinine, Serum 0.57 0.5 - 1.4 mg/dL [facility] Estimated Glomerular Filt Rate >60 [facility] Comment:Chronic Kidney Disea se: Estimated GFR < 60 mL/min/1.22v2Bqzday Kidney Disease: Estimated GFR < 15 mL/min/1.73m2 Glucose 89 60 - 115 mg/dL [facility] Calcium 9.3 8.4 - 10.2 mg/dL [facility] Bilirubin, Total 1.1(H) 0.0 - 1.0 mg/dL [facility] Aspartate Amino Transferase 29 5 - 31 U/L [facility] Alanine Aminotransferase 32(H) 0 - 31 U/L [facility] Total Protein 7.4 6.5 - 8.0 g/dL [facility] Albumin Level 4.7 3.5 - 5.0 g/dL [facility] Alkaline Phosphatase 75 39 - 117 U/L [facility] Blood Venous blood specimen / Unknown 05/27/2025 9:52 AM EDT 05/27/2025 11:08 AM EDT Ashley Medellin MD LAB BLOOD ORDERAB LES Final Result [facility] [address] [place] [address] [phone] from Last [address] [place] [address] [place] [address] C3 Care Teams Molder Punch Relationship Specialty Start Date End Date Ashley Boyle MD [address] [place] [phone] PCP - General Internal Medicine 05/27/25
== END 2025-07-04 11:11 | disposition home or self-care (01) ==
LOC: HO.HHCL 11:10
PROVIDERS: PCP Student in an Organized Health Care Education/Training Program; Visit Provider Student in an Organized Health Care Education/Training Program
DX: Z3A.01 Less than 8 weeks gestation of pregnancy (principal)
CPT/HCPCS: 36415; 84702